=== PATIENT | male | born 1995 | race Hispanic/Latino ===

== ENCOUNTER 2022-04-28 21:30 | Emergency (ER) | payer OTHER ==
[~2022-04-28] VITALS: Ht 167.6 cm; Wt 112.0 kg
[2022-04-28] MEDS ORDERED: ACETAMINOPHEN 325 MG TAB ONE (21:57)
[2022-04-28] MEDS ORDERED: ONDANSETRON 4MG INJ ONE (21:58)
[2022-04-28] MEDS ORDERED: 0.9%NACL 1000ML 1,000 ML IV ONE (22:00)
[2022-04-28] MEDS ORDERED: ONDANSETRON 4MG INJ IVP ONE (22:00)
[2022-04-28] MEDS ORDERED: ACETAMINOPHEN 325 MG TAB PO ONE (22:00)
[2022-04-28 22:04] LABS: BASOPHILS % (AUTO) 0.1 % (0.0-5.0); EOSINOPHILS % (AUTO) 0.1 % (0.0-8.0); HEMATOCRIT 45.5 % (42-54); MEAN CORPUSCULAR HEMOGLOBIN 28.4 pg (27.0-33.0); MEAN CORPUSCULAR HGB CONC 36.3 g/dL (32.0-36.0); MEAN CORPUSCULAR VOLUME 78.3 fL (79-99); MONOCYTES % (AUTO) 3.7 % (3.0-13.0); NEUTROPHILS % (AUTO) 84.7 % (40.0-77.0); PLATELET COUNT (AUTO) 190 K/uL (130-400); RED BLOOD CELL COUNT(AUTO) 5.81 MIL/uL (4.50-6.20); RED CELL DISTRIBUTION WIDTH 12.9 % (11.0-15.5); WHITE BLOOD COUNT (AUTO) 10.1 K/uL (4.8-10.8)
[2022-04-28 22:12] LABS: CREATININE 0.9 mg/dL (0.5-1.5); POTASSIUM 3.3 mmol/L (3.5-5.1)
[2022-04-28 22:14] LABS: APPEARANCE,URINE CLEAR (CLEAR); BILIRUBIN,URINE SMALL (NEGATIVE); COLOR,URINE DARK YELLOW (YELLOW); GLUCOSE, URINE (UA) NEGATIVE (NEGATIVE); KETONES,URINE NEGATIVE (NEGATIVE); LEUKOCYTE ESTERASE ,URINE NEGATIVE (NEGATIVE); NITRATE,URINE NEGATIVE (NEGATIVE); OCCULT BLOOD,URINE TRACE-INTACT (NEGATIVE); PROTEIN,URINE TRACE mg/dL (NEGATIVE); UROBILINOGEN,URINE 0.2 mg/dL (0.2-1.0)
[2022-04-28 22:17] LABS: TOTAL PROTEIN, SERUM 7.4 g/dL (6.0-8.3)
[2022-04-28 22:28] LABS: BACTERIA,URINE Rare /HPF (None Seen); RBC,URINE 0-1 /HPF (0-1); SQUAMOUS EPITHELIAL CELL,UR None Seen /HPF (0-2); WBC,URINE 0-1 /HPF (0-1)
[2022-04-29] MEDS ORDERED: CIPR-278 PO (00:11)
[2022-04-29] MEDS ORDERED: LEVOFLOXACIN 500 MG TABLET ONE (00:13)
[2022-04-29 00:24] VITALS: BP 111/62
[2022-04-29] MEDS ORDERED: LEVOFLOXACIN 500 MG TABLET PO SCH (00:30)
== END 2022-04-29 00:25 | disposition home or self-care (01) ==
LOC: EDH 21:30
DX: A09 Infectious gastroenteritis and colitis, unspecified (principal); Z20.822 Contact with and (suspected) exposure to COVID-19; F41.9 Anxiety disorder, unspecified; I10 Essential (primary) hypertension; J45.909 Unspecified asthma, uncomplicated
CPT/HCPCS: 99284; 96374; 76705; 87635; 96361; 80053; 83690; 85025; 87040 ×2; 87804 ×2; 83605; 81001; 36415; C9803; J7030; J2405